=== PATIENT | male | born 1945 | race Caucasian/White ===

== ENCOUNTER 2020-02-17 12:03 | Emergency (ER) | payer OTHER ==
--- NOTE | 2020-02-17 12:51 | PDOC ---
History of Present Illness - General Chief Complaint: Blood Sugar Problem Stated Complaint: Blood Sugar Problem Time Seen by Provider: 02/17/20 12:49 History Source: Patient Exam Limitations: No Limitations - History of Present Illness Initial Comments: 02/17/20 13:24 HPI: 74 y/o male with a PMH of IDDM, HTN, and HLD presented to the ED today after a near syncopal episode this morning. He reports that he was working outside for about and hour and a half when he felt his "sugar had dropped," and so he went into his kitchen. He reported one episode of vomiting, and he laid down on the floor to avoid falling. His gave him two glucose tablets and called an ambulance. The patient reported that he was nauseated and diaphoretic. He states that this happened two years ago. He denies lightheadedness, SOB, chest pain, palpitations, blurry vision, abdominal pain. He has a continual blood sugar monitor, however he lost the case to it and so it has not been working. He also has an insulin pump which automatically injects a set amount every hour. ROS: (-): Chest pain, SOB, weakness, dizziness PMH: IDDM, HTN, HLD Meds: Aspirin, Atorvastatin, Metoprolol, Novolog 25mg Allergies: Denied PE: General: Patient is awake and alert, in no acute distress. Cardiac: RRR, no murmurs appreciated Lungs: CTA bilaterally Neuro: CN 2-9 intact bilaterally. Strength and sensation equal in bilateral extremities. Extremities: Strength intact in upper and lower extremities bilaterally. MDM: Patient is a 74 y/o male presenting due to suspected hypoglycemic episode. However, since he did not take his blood sugar during the episode and due to the prolonged QTc on EKG, we want to rule out cardiac and infectious causes. Patient is feeling better since he arrived. Labs came back WNL. Patient continued to im prove after eating, and returned to baseline per his . 02/17/20 14:46 Past History - Medical History Allergies/Adverse Reactions: Allergies Allergy/AdvReac Type Severity Reaction Status Date / Time No Known Drug Allergies Allergy Verified 02/17/20 12:39 Home Medications: Ambulatory Orders Escitalopram Oxalate [Lexapro] 10 mg PO HS 02/10/12 Moexipril HCl 7.5 mg PO DAILY 06/25/12 Pravastatin Sodium [Pravachol] 20 PO HS 02/10/12 Cancer: Yes COPD: No Diabetes: Yes (insulin pump) HTN: Yes Hypercholesterolemia: Yes - Immunization History Td Vaccination: Yes Immunization Up to Date: Yes - Psycho-Social/Smoking History Smoking Status: Yes Smoking History: Current some day smoker Have you smoked in the past 12 months: Yes Number of Cigarettes Smoked Daily: 0 Cigars Per Day: 0 'Breaking Loose' booklet given: 05/19/13 Heart Score/ECG Review - ECG Intrepretation Rhythm: Regular Rhythm - [place]: Normal - ST and T Prolonged Q-T Interval: Yes Comment:: 02/17/20 14:00 QT/QTc 494/505 - ECG Impressions Normal ECG: No ED Treatment Course - LABORATORY CBC & Chemistry Diagram: 02/17/20 14:18 02/17/20 14:18 - ADDITIONAL ORDERS Additional order review: Laboratory Results 02/17/20 12:12 POC Glucometer 242 02/17/20 12:12 POC Glucometer 242 Discharge - Discharge Information Problems reviewed: Yes Clinical Impression/Diagnosis: Hypoglycemia due to type 1 diabetes mellitus Condition: Stable Disposition: HOME - Admission No - Additional Discharge Information Plan of Treatment: You came to the emergency department due to an episode of presumed hypoglycemia causing near syncope. Since no blood glucose was recorded at the time, we wanted to rule out other causes. You were given fluids, chest x-ray, EKG, and labwork. The results were printed out for you to bring to your primary care provider. Return to ED if any new or worsening symptoms. Follow up with your primary care physician in the next 2-3 days. - Follow up/Referral - Patient Discharge Instructions Patient Printed Discharge Instructions: DI for Hypoglycemia - Post Discharge Activity
[2020-02-17] MEDS ORDERED: SODIUM CHLORIDE 0.9% 500 ML INFUS.BAG IV ONE (14:03)
[2020-02-17 14:43] VITALS: TEMP 98; BMI 24.7
[2020-02-17 14:46] LABS: BASO % 0.2 % (0-2.0); EOS % 0.2 % (0-4.5); HEMATOCRIT 46.1 % (35.4-49); HEMOGLOBIN 15.5 GM/dL (11.7-16.9); MCH 30.6 pg (25.7-33.7); MCHC 33.7 g/dl (32.0-35.9); MEAN CELL VOLUME 90.8 fl (80-96); MEAN PLT VOLUME 8.4 fl (7.5-11.1); MONO % 4.1 % (3.8-10.2); NEUT % 87.5 % (42.8-82.8); PLATELET COUNT 204 K/MM3 (134-434); RBC 5.08 M/mm3 (4.00-5.60); RDW 12.7 % (11.9-15.9); WHITE BLOOD COUNT 10.1 K/mm3 (4.0-10.0)
[2020-02-17 15:13] LABS: ALBUMIN 3.9 g/dl (3.4-5.0); ALK PHOS 85 U/L (45-117); ANION GAP 8 MMOL/L (8-16); BILIRUBIN,TOTAL 0.9 mg/dL (0.2-1); BLOOD UREA NITROGEN 18.5 mg/dL (7-18); CALCIUM 9.6 mg/dL (8.5-10.1); CHLORIDE 105 mmol/L (98-107); CO2 26 mmol/L (21-32); CREATININE 1.1 mg/dL (0.55-1.3); GLUCOSE,RANDOM 229 mg/dL (74-106); MAGNESIUM 2.1 mg/dL (1.8-2.4); SGOT/AST 17 U/L (15-37); SGPT/ALT 19 U/L (13-61); SODIUM 139 mmol/L (136-145); TOT PROT 7.1 g/dl (6.4-8.2)
--- NOTE | 2020-02-17 15:48 | PDOC ---
Documentation entered by Belia Mazraiegos SCRIBE, acting as scribe for Xiao Simpson MD. Xiao Simpson MD: This documentation has been prepared by the Darvin dubois Nirvannie, SCRIBE, under my direction and personally reviewed by me in its entirety. I confirm that the documentation accurately reflects all work, treatment, procedures, and medical decision making performed by me. Attending Attestation - Resident Resident Name: Ynacy Ho - ED Attending Attestation I have performed the following: I have examined & evaluated the patient, The case was reviewed & discussed with the resident, I agree w/resident's findings & plan, Exceptions are as noted - HPI HPI: 02/17/20 14:37 The patient is a 74 year old male with a significant past medical history of IDDM (insulin pump/Q1hr injection), HTN, and HLD who presents to the ED s/p syncope this morning. As per patient, after working outside for approximately an hour and half he felt as if his blood glucose levels dropped thus went back inside at which time had an episode of emesis and laid on the floor to prevent falling. Patients gave him 2 glucose tablets prior to his arrival. He notes similar episodes in the past. He had a continual blood sugar monitor, however, it no longer works after he lost the case. Per family, he is currently being worked up outpatient for change in gait and mentation beginning 08/2019, without pertinent findings. Allergies: NKDA - Physicial Exam PE: 02/17/20 15:40 Agree with resident exam. Patient is alert and oriented x 3 and in no acute distress. Lungs are clear. CV rrr no m/r/g abdomen soft, non tender, non distended without guarding or rebound. - Medical Decision Making 02/17/20 15:43 Pt presents to the ED after an episode of lightheadness that resolved with glucose tablets at home. Now has no symptoms. Symptoms most likely caused by hypoglycemia. Will check labs to evaluate for ACS, likely discharge home if ne gative. Discharge - Discharge Information Problems reviewed: Yes Clinical Impression/Diagnosis: Hypoglycemia due to type 1 diabetes mellitus Condition: Stable Disposition: HOME - Additional Discharge Information Plan of Treatment: You came to the emergency department due to an episode of presumed hypoglycemia causing near syncope. Since no blood glucose was recorded at the time, we wanted to rule out other causes. You were given fluids, chest x-ray, EKG, and labwork. The results were printed out for you to bring to your primary care provider. Return to ED if any new or worsening symptoms. Follow up with your primary care physician in the next 2-3 days. - Follow up/Referral - Patient Discharge Instructions Patient Printed Discharge Instructions: DI for Hypoglycemia - Post Discharge Activity
[2020-02-17 15:55] LABS: URINE APPEARANCE CLEAR; URINE BILIRUBIN NEGATIVE (NEGATIVE); URINE COLOR YELLOW; URINE GLUCOSE (UA) 3+ (NEGATIVE); URINE KETONE 2+ (NEGATIVE); URINE LEUK ESTERASE NEGATIVE (NEGATIVE); URINE NITRITE NEGATIVE (NEGATIVE); URINE PROTEIN NEGATIVE (NEGATIVE)
[2020-02-17 16:48] VITALS: BP 151/88; PULSE 72
--- NOTE | 2020-02-18 10:50 | EKG ---
Test Reason : Blood Pressure : / mmHG Vent. Rate : 063 BPM Atrial Rate : 063 BPM P-R Int : 158 ms QRS Dur : 100 ms QT Int : 494 ms P-R-T Axes : 060 076 066 degrees QTc Int : 505 ms NORMAL SINUS RHYTHM PROLONGED QT WHEN COMPARED WITH ECG OF 10-JUN-2007 07:47, QT HAS LENGTHENED Confirmed by DEMETRIS PENNINGTON MD ([id number]) on 02/18/2020 10:49:45 AM Referred By: Confirmed By:DEMETRIS PENNINGTON MD
== END 2020-02-17 16:45 | disposition home or self-care (01) ==
LOC: JER 12:03
DX: E10.649 Type 1 diabetes mellitus with hypoglycemia without coma (principal)
CPT/HCPCS: 36415; 71045-TC-FY; 80053; 81003; 82550; 82962; 83735; 84484; 85025; 93005; 93010; 99285-25

== ENCOUNTER 2021-03-11 19:20 | Emergency (ER) | payer OTHER ==
[2021-03-11 19:39] VITALS: TEMP 98.1; BMI 24.9
[2021-03-11] MEDS ORDERED: DIPHTH,PERTUSS(ACELL),TET 0.5 ML DISP.SYRIN IM ONE ×2 (19:40→20:18)
[2021-03-11] MEDS ORDERED: SODIUM CHLORIDE 0.9% 1000 ML INFUS.BAG IV ONE (19:41)
[2021-03-11 20:17] LABS: BASO % 0.5 % (0-2.0); EOS % 1.4 % (0-4.5); HEMATOCRIT 41.9 % (35.4-49); HEMOGLOBIN 14.2 GM/dL (11.7-16.9); LYMPH % 23.9 % (8-40); MCH 30.9 pg (25.7-33.7); MCHC 33.9 g/dl (32.0-35.9); MEAN CELL VOLUME 90.9 fl (80-96); MEAN PLT VOLUME 7.9 fl (7.5-11.1); MONO % 6.5 % (3.8-10.2); NEUT % 67.7 % (42.8-82.8); PLATELET COUNT 200 10^3/uL (134-434); RBC 4.61 M/mm3 (4.00-5.60); RDW 13.3 % (11.9-15.9); WHITE BLOOD COUNT 5.6 K/mm3 (4.0-10.0)
[2021-03-11 20:42] LABS: CHLORIDE 106 mmol/L (98-107); SODIUM 140 mmol/L (136-145)
[2021-03-11 20:44] LABS: CALCIUM 9.1 mg/dL (8.5-10.1)
[2021-03-11 20:45] LABS: ALBUMIN 3.6 g/dl (3.4-5.0); ANION GAP 6 MMOL/L (8-16); BLOOD UREA NITROGEN 24.1 mg/dL (7-18); CO2 27 mmol/L (21-32); GLUCOSE,RANDOM 140 mg/dL (74-106)
[2021-03-11 20:48] LABS: CREATININE 1.1 mg/dL (0.55-1.3); SGOT/AST 15 U/L (15-37); SGPT/ALT 19 U/L (13-61)
[2021-03-11 20:50] LABS: BILIRUBIN,TOTAL 0.5 mg/dL (0.2-1); TOT PROT 6.8 g/dl (6.4-8.2)
[2021-03-11 20:51] LABS: ALK PHOS 78 U/L (45-117)
[2021-03-11] MEDS ORDERED: ceFAZolin 2 GRAM PREMIX BAG IVPB ONE (21:46)
[2021-03-11] MEDS ORDERED: CEFAZOLIN 2 GM/D5W 2 GM/50 ML ML IVPB ONE (22:35)
[2021-03-11 23:11] VITALS: BP 132/62; PULSE 71
== END 2021-03-11 23:12 | disposition home or self-care (01) ==
LOC: JER 19:20
PROC: 3E03329 Introduction of Other Anti-infective into Peripheral Vein, Percutaneous Approach (ICD-10-PCS; principal; 2021-03-11)
PROC: 3E0234Z Introduction of Serum, Toxoid and Vaccine into Muscle, Percutaneous Approach (ICD-10-PCS; 2021-03-11)
DX: S01.21XA Laceration without foreign body of nose, initial encounter (principal); R55 Syncope and collapse; S02.2XXB Fracture of nasal bones, initial encounter for open fracture
CPT/HCPCS: 36415; 70450-TC; 70486-TC; 80053; 82550; 84484; 85025; 90471; 90715; 93005; 93010; 96374; 99285-25